=== PATIENT | male | born 2000 | race African-American/Black ===

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

== ENCOUNTER 2018-12-15 07:59 | Emergency (ER) | payer SELFPAY ==
[~2018-12-15] VITALS: Ht 210.8 cm; Wt 61.3 kg
[2018-12-15] MEDS ORDERED: IBUPROFEN 600MG TABLET PO STA (09:44)
[2018-12-15 10:52] VITALS: BP 111/78
== END 2018-12-15 10:53 | disposition home or self-care (01) ==
LOC: ER 08:48
DX: J06.9 Acute upper respiratory infection, unspecified (principal)
CPT/HCPCS: 87070; 87430; 99283

== ENCOUNTER 2019-03-30 13:44 | Emergency (ER) | payer MEDICAID ==
[~2019-03-30] VITALS: Ht 182.9 cm; Wt 62.0 kg
[2019-03-30] MEDS ORDERED: IBUPROFEN 600MG TABLET PO ONE (14:30)
[2019-03-30 15:01] VITALS: BP 114/88
== END 2019-03-30 17:08 | disposition home or self-care (01) ==
LOC: ER 16:20
DX: M54.5 Low back pain (principal)
CPT/HCPCS: 99282